=== PATIENT | female | born 1955 | race Asian ===

== ENCOUNTER 2022-09-11 05:54 | Day surgery (SDC) | payer MEDICARE, MEDICAID ==
[~2022-09-11] VITALS: Ht 154.9 cm; Wt 57.2 kg
[~2022-09-11 05:54] MED LIST: AMLO10TA55 PO; ASPI-1450 PO; CARV25TA32 PO; FOLI0.8T22 PO; ISOS30TA92 PO; SEVE800T17 PO
[2022-09-11] MEDS ORDERED: SODIUM CHLORIDE 0.9% 1,000 ML IV ONE (06:00)
[2022-09-11] MEDS ORDERED: SODIUM CHLORIDE 0.9% 1,000 ML ONE (07:17)
[2022-09-11] MEDS ORDERED: SODIUM BICARBONATE 50 MEQ/50 ML VIAL ONE (07:29)
[2022-09-11] MEDS ORDERED: LIDOCAINE/PF 1% 30 ML VIAL ONE (07:29)
[2022-09-11] MEDS ORDERED: IOHEXOL 300 MG/ML 100 ML VIAL ONE (07:29)
[2022-09-11] MEDS ORDERED: HEPARIN SODIUM 1000 UNITS/NS 1,000 ML ONE (07:30)
[2022-09-11 07:43] LABS: BASOPHILS % (AUTO) 2.2 % (0.0-2.0); EOSINOPHILS % (AUTO) 3.6 % (1.0-6.0); HEMATOCRIT 34.6 % (36-46); HEMOGLOBIN 10.8 g/dL (12.0-16.0); LYMPHOCYTES # (AUTO) 0.9 K/uL (1.0-4.8); LYMPHOCYTES % (AUTO) 24.1 % (22.0-44.0); MEAN CORPUSCULAR HEMOGLOBIN 23.3 pg (26.0-34.0); MEAN CORPUSCULAR HGB CONC 31.2 G/dL (31.0-37.0); MEAN CORPUSCULAR VOLUME 75 fL (80-100); MONOCYTES # (AUTO) 0.3 K/uL (0.1-1.0); MONOCYTES % (AUTO) 9.2 % (2.0-9.0); NEUTROPHILS # (AUTO) 2.3 K/uL (1.8-7.7); NEUTROPHILS % (AUTO) 60.9 % (40.0-70.0); PLATELET COUNT (AUTO) 162 K/uL (150-450); RED BLOOD CELL COUNT(AUTO) 4.65 MIL/uL (4.00-5.20); RED CELL DISTRIBUTION WIDTH 16.9 % (11.5-14.5)
[2022-09-11 07:44] LABS: COVID AG,FIA SOURCE NASAL SWAB
[2022-09-11 07:55] LABS: PROTHROMBIN TIME 10.7 SEC (9.4-11.6)
[2022-09-11 08:13] LABS: CALCIUM, TOTAL 9.1 mg/dL (8.8-10.5); CREATININE 4.88 mg/dL (0.60-1.30); POTASSIUM 3.7 mmol/L (3.5-5.1)
[2022-09-11 08:20] LABS: ALBUMIN 3.4 g/dL (3.4-5.0); BILIRUBIN,TOTAL 0.9 mg/dL (0.1-1.0); TOTAL PROTEIN, SERUM 7.4 g/dL (6.4-8.2)
[2022-09-11 14:33] VITALS: BP 176/70
[2022-09-11] MEDS ORDERED: VERAPAMIL HCL 2.5 MG/ML 2 ML VIAL ONE (14:44)
[2022-09-11] MEDS ORDERED: NITROGLYCERIN 50 MG/D5% WATER 250 ML ONE (14:44)
[2022-09-11] MEDS ORDERED: FentaNYL CITRATE PF 100 MCG/2 ML VIAL ONE (14:45)
[2022-09-11] MEDS ORDERED: MIDAZOLAM HCL 2 MG/2 ML VIAL ONE (14:45)
[2022-09-11] MEDS ORDERED: FentaNYL CITRATE PF 100 MCG/2 ML VIAL IVP ONE (15:00)
[2022-09-11] MEDS ORDERED: MIDAZOLAM HCL 2 MG/2 ML VIAL IVP ONE (15:00)
[2022-09-11] MEDS ORDERED: IOHEXOL 300 MG/ML 100 ML VIAL IARTER ONE (15:00)
[2022-09-11] MEDS ORDERED: NITROGLYCERIN/D5W 50 MG/250 ML IV BOTTLE IARTER ONE (15:00)
[2022-09-11] MEDS ORDERED: HEPARIN SODIUM,PORCINE 1,000 UNITS/ML 10 ML VIAL IARTER ONE (15:00)
[2022-09-11] MEDS ORDERED: LIDOCAINE 1% 30 ML/SOD BICARB 8.4% 4 ML SQ ONE (15:00)
[2022-09-11] MEDS ORDERED: VERAPAMIL HCL 2.5 MG/ML 2 ML VIAL IARTER ONE (15:00)
[2022-09-11] MEDS ORDERED: HEPARIN SODIUM 1000 UNITS/NS 1,000 ML IARTER ONE (15:00)
[2022-09-11 15:17] VITALS: BP 144/93
== END 2022-09-11 19:45 | disposition home or self-care (01) ==
LOC: CATHLAB 05:54
PROVIDERS: ATTEND Internal Medicine Cardiovascular Disease
DX: R94.39 Abnormal result of other cardiovascular function study (principal); I25.10 Atherosclerotic heart disease of native coronary artery without angina pectoris; I12.0 Hypertensive chronic kidney disease with stage 5 chronic kidney disease or end stage renal disease; N18.6 End stage renal disease; I69.354 Hemiplegia and hemiparesis following cerebral infarction affecting left non-dominant side; Z79.01 Long term (current) use of anticoagulants; Z79.899 Other long term (current) drug therapy; Z98.890 Other specified postprocedural states; Z20.822 Contact with and (suspected) exposure to COVID-19; Z90.710 Acquired absence of both cervix and uterus; Z88.0 Allergy status to penicillin
CPT/HCPCS: 93458; 80053; 85025; 85610; 85730; 36415; 99152; 93005; 87426; J3010; J1644; J3490 ×4; J2250; J7030; Q9967; C9803